=== PATIENT | male | born 1980 | race Caucasian/White ===

== ENCOUNTER 2020-03-13 22:24 | Emergency (ER) | payer OTHER ==
[~2020-03-13] VITALS: Ht 177.8 cm; Wt 81.7 kg
[2020-03-14 00:10] VITALS: BP 115/66
== END 2020-03-14 00:11 | disposition home or self-care (01) ==
LOC: M.ERS 22:24
DX: S00.83XA Contusion of other part of head, initial encounter (principal); W51.XXXA Accidental striking against or bumped into by another person, initial encounter; Y93.89 Activity, other specified; Y92.89 Other specified places as the place of occurrence of the external cause; Y99.8 Other external cause status